=== PATIENT | male | born 1960 | race African-American/Black ===

== ENCOUNTER 2017-09-01 18:57 | Inpatient (IN) | payer OTHER ==
[~2017-09-01] VITALS: Ht 170.2 cm; Wt 96.4 kg
[~2017-09-01 18:57] MED LIST: DEPAKOTE500 MG PO; GLIPIZIDE5 MG PO; LISINOPRIL30 MG PO; METFORMIN HCL500 MG PO
[2017-09-01 20:21] LABS: ADD MIUA? YES; BILIRUBIN NEGATIVE; BLOOD SMALL; COLOR STRAW ((YELLOW)); GLUCOSE (STRIP) NEGATIVE; KETONES NEGATIVE; LEUKOCYTES NEGATIVE; NITRITE NEGATIVE; PROTEIN (STRIP) NEGATIVE; UROBILINOGEN 0.2 MG/DL (0.2-1.0)
[2017-09-01 20:32] LABS: BACTERIA RARE /HPF; EPITHELIAL CELLS NONE SEEN /HPF; MUCUS TRACE /LPF; RED BLOOD CELLS 0-5 /HPF (0-5); UCUL ADDED? NO; WHITE BLOOD CELLS 0-5 /HPF (0-5)
[2017-09-01 20:54] LABS: EOSINOPHIL (%) 1.4 % (0-5); EOSINOPHIL COUNT 0.1 K/uL (0-0.3); HEMATOCRIT 33.8 % (38.0-50.0); IMMATURE GRANULOCYTE (%) 0.6 % (0.0-0.7); IMMATURE GRANULOCYTE COUNT 0.1 K/uL; INSTRUMENT ABS NEUTROPHIL CT 5.7 K/uL; LYMPHOCYTE COUNT 1.7 K/uL (1.0-2.8); MCH 25.1 PG (29.0-34.0); MCHC 30.5 G/DL (30.0-36.0); MCV 82.4 FL (86-99); MEAN PLAT.VOLUME 9.3 uM^3 (9.0-12.4); MONOCYTE (%) 5.7 % (3-12); MONOCYTE COUNT 0.5 K/uL (0-0.8); NEUTROPHIL (%) 71.1 % (45-76); NEUTROPHIL COUNT 5.7 K/uL (1.8-6.4); PLATELET COUNT 629 K/uL (156-360); RBC DIS.WIDTH-CV 15.4 % (11.8-14.6); RBC DIS.WIDTH-SD 45.9 % (39-53); WHITE BLOOD COUNT 8.1 K/uL (4.1-10.2)
[2017-09-01 21:06] LABS: CHLORIDE 102 mEq/L (99-109); POTASSIUM 4.3 mEq/L (3.7-5.4); SODIUM 136 mEq/L (136-147)
[2017-09-01 21:08] LABS: GLUCOSE 89 mg/dL (70-99)
[2017-09-01 21:09] LABS: ANION GAP 8 MEQ/L (2-14)
[2017-09-01 21:10] LABS: TOTAL BILIRUBIN 0.3 mg/dL (0.0-1.0)
[2017-09-01 21:12] LABS: ALKALINE PHOSPHATASE 135 IU/L (3-129); GFR ESTIMATE (CALCULATED) > 59 mL/min/ (58.99-99999)
[2017-09-01 21:13] LABS: UREA NITROGEN (BUN) 11 mg/dL (9-23)
[2017-09-01 21:15] LABS: LIPASE 71 U/L (1.0-51.0)
[2017-09-01] MEDS ORDERED: OXAYDO5 MG PO (23:06)
[2017-09-02] MEDS ORDERED: DEPAKOTE250 MG PO (00:44)
[2017-09-02] MEDS ORDERED: PROMETHAZINE HC25 M1 PO (00:46)
[2017-09-02] MEDS ORDERED: LUPRON DEPOT7.5 MG IM (00:46)
[2017-09-02] MEDS ORDERED: PROAIR RESPICL90 MCG IH (00:48)
[2017-09-02] MEDS ORDERED: FERROUS SULFAT325 MG PO (00:49)
[2017-09-02] MEDS ORDERED: HUMULIN R100 UNITS/ SC (00:51)
[2017-09-02] MEDS ORDERED: CASODEX50 MG PO (00:53)
[2017-09-02] MEDS ORDERED: OXYCONTIN10 MG PO (00:53)
[2017-09-02] MEDS ORDERED: LANTUS 10100 UNITS/ SC ×2 (00:55→00:56)
[2017-09-02 01:37] VITALS: BP 126/82
[2017-09-02 06:07] LABS: POINT-OF-CARE METER ID UU13113774
[2017-09-02 07:46] VITALS: BP 100/51
[2017-09-02 11:30] LABS: POINT-OF-CARE METER ID UU13113725
[2017-09-02 16:21] VITALS: BP 132/63
[2017-09-02 16:28] LABS: POINT-OF-CARE METER ID UU13113725
[2017-09-02 21:45] LABS: POINT-OF-CARE METER ID UU13113725
[2017-09-03 01:14] VITALS: BP 115/60
[2017-09-03 06:42] LABS: HEMATOCRIT 31.5 % (38.0-50.0); MCH 25.2 PG (29.0-34.0); MCHC 30.5 G/DL (30.0-36.0); MCV 82.7 FL (86-99); MEAN PLAT.VOLUME 9.1 uM^3 (9.0-12.4); PLATELET COUNT 564 K/uL (156-360); RBC DIS.WIDTH-CV 15.7 % (11.8-14.6); RBC DIS.WIDTH-SD 47.3 % (39-53); RED BLOOD COUNT 3.81 M/uL (4.00-5.50); WHITE BLOOD COUNT 6.6 K/uL (4.1-10.2)
[2017-09-03 06:57] LABS: POINT-OF-CARE METER ID UU13113725
[2017-09-03 07:13] LABS: ANION GAP 7 MEQ/L (2-14); CHLORIDE 105 MEQ/L (99-109); GFR ESTIMATE (CALCULATED) > 59 mL/min/ (58.99-99999); GLUCOSE 101 mg/dL (70-99); POTASSIUM 4.9 MEQ/L (3.7-5.4); SAMPLE HEMOLYSIS CHECK 0; SAMPLE ICTERIC CHECK 0; SAMPLE LIPEMIA CHECK 0; SODIUM 139 MEQ/L (136-147); UREA NITROGEN (BUN) 14 mg/dL (9-23)
[2017-09-03 07:31] VITALS: BP 123/59
[2017-09-03 11:44] LABS: POINT-OF-CARE METER ID UU13113725
[2017-09-03 14:05] LABS: POINT-OF-CARE METER ID UU13113675
[2017-09-03] MEDS ORDERED: POLYETHYLENE GL17 GM PO (15:03)
[2017-09-03] MEDS ORDERED: DOCUSATE SODIU100 MG PO (15:03)
[2017-09-03] MEDS ORDERED: DULCOLAX5 MG PO (15:03)
[2017-09-03 15:27] VITALS: BP 138/76
[2017-09-03 16:42] LABS: POINT-OF-CARE METER ID UU13113725
== END 2017-09-03 17:25 | DRG 694 ==
LOC: EME 18:57 → EDOF 23:04 → ENRESERV 23:08 → 5EAST 09-02 01:15
PROVIDERS: Emergency Medicine; Hospitalist
DX: N13.1 Hydronephrosis with ureteral stricture, not elsewhere classified (principal); G89.3 Neoplasm related pain (acute) (chronic); C61 Malignant neoplasm of prostate; C79.51 Secondary malignant neoplasm of bone; E11.9 Type 2 diabetes mellitus without complications; I10 Essential (primary) hypertension; F31.9 Bipolar disorder, unspecified; E78.5 Hyperlipidemia, unspecified; I25.10 Atherosclerotic heart disease of native coronary artery without angina pectoris; I25.2 Old myocardial infarction; K59.03 Drug induced constipation; Z87.891 Personal history of nicotine dependence; Z92.21 Personal history of antineoplastic chemotherapy; Z79.84 Long term (current) use of oral hypoglycemic drugs; E66.9 Obesity, unspecified; Z68.33 Body mass index [BMI] 33.0-33.9, adult
CPT/HCPCS: 74177; 80048; 80053; 81003; 82948; 83605; 83690; 85025; 85027; 99281; 99285; C1758; C1876; C2625; G0103; J0690; J1170; J1650; J1815; J2250; J3010; J7030

== ENCOUNTER 2018-02-01 15:46 | Emergency (ER) | payer OTHER ==
[~2018-02-01] VITALS: Ht 170.2 cm; Wt 95.7 kg
[~2018-02-01 15:46] MED LIST changes: +CASODEX50 MG PO; +DEPAKOTE250 MG PO; +DOCUSATE SODIU100 MG PO; +DULCOLAX5 MG PO; +FERROUS SULFAT325 MG PO; +HUMULIN R100 UNITS/ SC; +LANTUS 10100 UNITS/ SC; +LUPRON DEPOT7.5 MG IM; +OXAYDO5 MG PO; +OXYCONTIN10 MG PO; +POLYETHYLENE GL17 GM PO; +PROAIR RESPICL90 MCG IH; +PROMETHAZINE HC25 M1 PO
[2018-02-01 17:04] LABS: HEMATOCRIT 30.7 % (38.0-50.0); HEMOGLOBIN 9.6 G/DL (12.5-16.6); MCH 25.2 PG (29.0-34.0); MCHC 31.3 G/DL (30.0-36.0); MCV 80.6 FL (86-99); PLATELET COUNT 424 K/uL (156-360); RBC DIS.WIDTH-SD 49.6 % (39-53); RED BLOOD COUNT 3.81 M/uL (4.00-5.50); WHITE BLOOD COUNT 7.6 K/uL (4.1-10.2)
[2018-02-01 17:10] LABS: INTER. NORMALIZED RATIO 1.1
[2018-02-01 17:13] LABS: PTT 29.5 SEC (25-37)
[2018-02-01 17:18] LABS: CHLORIDE 103 mEq/L (99-109); POTASSIUM 3.4 mEq/L (3.7-5.4); SODIUM 140 mEq/L (136-147)
[2018-02-01 17:19] LABS: GLUCOSE 104 mg/dL (70-99)
[2018-02-01 17:23] LABS: CREATININE 0.9 mg/dL (0.6-1.3); GFR ESTIMATE (CALCULATED) > 59 mL/min/ (58.99-99999)
[2018-02-01 17:24] LABS: UREA NITROGEN (BUN) 14 mg/dL (9-23)
[2018-02-01 18:25] VITALS: BP 150/97
== END 2018-02-01 18:28 ==
LOC: EME 15:46
PROVIDERS: Nurse Practitioner Family
DX: R60.0 Localized edema (principal); C61 Malignant neoplasm of prostate; C78.5 Secondary malignant neoplasm of large intestine and rectum; Z92.3 Personal history of irradiation; I10 Essential (primary) hypertension; E11.9 Type 2 diabetes mellitus without complications; Z79.84 Long term (current) use of oral hypoglycemic drugs; J45.909 Unspecified asthma, uncomplicated; F31.9 Bipolar disorder, unspecified; Z87.891 Personal history of nicotine dependence
CPT/HCPCS: 80048; 85027; 85610; 85730; 93971; 99281; 99285